=== PATIENT | female | born 1935 | race Caucasian/White ===

== ENCOUNTER 2018-04-21 10:44 | Emergency (ER) | payer OTHER, BC ==
[2018-04-21 11:09] VITALS: BP 138/70; PULSE 78; TEMP 98.3; BMI 21.7
--- NOTE | 2018-04-21 11:15 | PDOC ---
Attending Attestation - Resident Resident Name: Gilda Smith - ED Attending Attestation I have performed the following: I have examined & evaluated the patient, The case was reviewed & discussed with the resident, I agree w/resident's findings & plan, Exceptions are as noted - HPI HPI: 04/21/18 12:03 82 yo F who presents to the ER via EMS s/p mechanical fall Pt was trying to cross the street, her foot got caught in the [place] sign She fell forward and struck her head and face No LOC No amnesia Pt assisted to standing by a passerbyer No preceding chest pain, shortness of breath, palpitations No focal weakness or numbness - Physicial Exam PE: 04/21/18 12:23 GENERAL: The patient is in no acute distress. HEAD: (+) signs of trauma. EYES: PERRLA, EOMI, sclera anicteric, conjunctiva clear. ENT: Ears normal, nares patent, oropharynx clear without exudates. Moist mucous membranes. Nasal bridge deformed and bruised NECK: Normal range of motion, supple without midline tenderness LUNGS: Breath sounds equal, clear to auscultation bilaterally. No wheezes, and no crackles. HEART:Regular rate and rhythm, normal S1 and S2 without murmur, rub or gallop. ABDOMEN: Soft, nontender, normoactive bowel sounds. No guarding, no rebound. . EXTREMITIES: Normal range of motion, no edema. NEUROLOGICAL: Cranial nerves II through XII grossly intact. Normal speech. No focal neurological deficits. MUSCULOSKELETAL: Back non-tender to palpation, pelvis stable SKIN: 3cm laceration over the right eyebrow - Medical Decision Making 04/22/18 18:12 CT head - no ICH CT facial bones - nasal bone fractures CT cervical spine - no fracture or dislocation 04/22/18 18:14 Laboratory Tests 04/21/18 04/21/18 12:05 12:05 WBC 8.0 Hgb 14.1 Hct 39.7 Plt Count 322 BUN 27 H Creatinine 0.9 Creatine Kinase 68 Troponin I 0.45 H I did not see this troponin real time This patient will be contacted to return to the ER could not reach this patient EMS assistance requested to reach this patient she was reached Pt was resting in bed No complaints of chest pain Pt asked to return to the ER for repeat labs
--- NOTE | 2018-04-21 11:36 | PDOC ---
History of Present Illness - General Chief Complaint: Injury Stated Complaint: FALL Time Seen by Provider: 04/21/18 11:13 History Source: Patient - History of Present Illness Initial Comments: 04/21/18 12:09 The patient is an 82 year old female with a PMH of HTN who was BIBEMS following a fall. Patient states she was walking on the sidewalk and when she tripped over a portion of a street sign post that was sticking out of the sidewalk and fell forward striking her head on the sidewalk. Denies LOC, states she was helped to a sitting position by some passerby who called 911. Denies any pre fall chest pain, shortness of breath, lightheadedness, palpitations. No h/o recent falls. State last fall was on the ice approximately five years previous. The patient denies abdominal pain, nausea/vomiting, diarrhea/constipation, dysuria/hematuria, cough, sore throat. NKDA Surgical: none reported Social: denies toxic habits PMD: As per EMR, patient has never been evaluated in our ED on prior occasion. Past History - Past Medical History Allergies/Adverse Reactions: Allergies Allergy/AdvReac Type Severity Reaction Status Date / Time No Known Allergies Allergy Verified 04/22/18 22:09 Home Medications: Ambulatory Orders Aspirin [ASA -] 81 mg PO DAILY 04/21/18 COPD: No HTN: Yes - Suicide/Smoking/Psychosocial Hx Smoking History: Never smoked Have you smoked in the past 12 months: No Information on smoking cessation initiated: No Hx Alcohol Use: No Drug/Substance Use Hx: No Review of Systems - Review of Systems Constitutional: No: Chills, Fever HEENTM: No: Eye Pain, Recent change in vision Respiratory: No: Cough, Shortness of Breath Cardiac (ROS): No: Chest Pain, Lightheadedness, Palpitations, Syncope ABD/GI: No: Constipated, Diarrhea, Nausea, Vomiting : No: Burning, Dysuria Neurological: No: Headache, Numbness, Pre-Existing Deficit, Tingling, Unsteady Gait, Ataxia, Dizziness *Physical Exam - Vital Signs Last Vital Signs Temp Pulse Resp BP Pulse Ox 98.3 F 78 18 138/70 100 04/21/18 11:08 04/21/18 11:08 04/21/18 11:08 04/21/18 11:08 04/21/18 11:08 - Physical Exam General Appearance: Yes: Nourished, Thin HEENT: positive: Normal Voice, Hearing Grossly Normal, Other (No periorbital ecchymosis, no mastoid ecchymosis) Neck: positive: Trachea midline, Supple Respiratory/Chest: positive: Lungs Clear, Normal Breath Sounds Cardiovascular: positive: S1, S2. negative: Edema, JVD Vascular Pulses: Dorsalis-Pedis (R): 2+, Doralis-Pedis (L): 2+ Gastrointestinal/Abdominal: positive: Normal Bowel Sounds, Soft Extremity: positive: Normal Capillary Refill, Normal Inspection, Normal Range of Motion. negative: Coldness, Cyanosis, Calf Tenderness Integumentary: positive: Normal Color, Warm Neurologic: positive: Fully Oriented, Alert Moderate Sedation - Procedure Monitoring Vital Signs: Procedure Monitoring Vital Signs Temperature 98.3 F 04/21/18 11:08 Pulse Rate 78 04/21/18 11:08 Respiratory Rate 18 04/21/18 11:08 Blood Pressure 138/70 04/21/18 11:08 O2 Sat by Pulse Oximetry (%) 100 04/21/18 11:08 ED Treatment Course - LABORATORY CBC & Chemistry Diagram: 04/21/18 12:05 04/21/18 12:05 - RADIOLOGY Radiology Studies Ordered: Category Date Time Status CERVICAL SPINE CT W/O CONTR [CT] Stat CT Scan 04/21/18 11:[address] WITHOUT CONTRAST [CT] Stat CT Scan 04/21/18 11:33 Ordered CXRPORT [CHEST X-RAY PORTABLE*] [RAD] Stat Radiology 04/21/18 11:34 Ordered Medical Decision Making - Medical Decision Making 04/21/18 12:17 82 year old female s/p mechanical fall. VS unremarkable, moving all 4 extremities, no neurologic deficit noted on PE. 4 cm laceration on R occiput. Will CT head/C-spine, facial bones, basic labs. Patient declining pain medication. Reassess. 04/21/18 17:[address] negative for acute bleed/ischemia. Facial CT bone showed Laceration closed using simple interrupted sutures by Dr. Nayely AGUILA and discharge home. Review of patient's chart showed Elevated Troponin (0.40) Patient called to return to ED for cardiac evaluation. *DC/Admit/Observation/Transfer Diagnosis at time of Disposition: Fall - Discharge Dispostion Disposition: HOME Condition at time of disposition: Good Decision to Admit order: No - Referrals Referrals: Madeleine Eugene MD [Primary Care Provider] - - Patient Instructions Printed Discharge Instructions: DI for Laceration Repair, How to Prevent Falls Additional Instructions: You were evaluated today for a fall. A cat scan of your head showed no concerning findings. At this time you are safe for discharge home. Please follow-up with your primary care provided in the next 1 week. Your care is not complete until you follow up with your primary care provider. Return to the Emergency Department in 3-5 days for wound evaluation and suture removal. Return to the Emergency Department before that time for any loose sutures, severe pain, redness or new/worsening/concerning symptoms. - Post Discharge Activity
[2018-04-21 12:33] LABS: BASO % 1.3 % (0-2.0); EOS % 2.2 % (0-4.5); HEMATOCRIT 39.7 % (32.4-45.2); HEMOGLOBIN 14.1 GM/dL (10.7-15.3); LYMPH % 11.2 % (8-40); MCH 34.9 pg (25.7-33.7); MCHC 35.6 g/dl (32.0-36.0); MEAN CELL VOLUME 97.9 fl (80-96); MEAN PLT VOLUME 8.8 fl (7.5-11.1); MONO % 13.4 % (3.8-10.2); NEUT % 71.9 % (42.8-82.8); PLATELET COUNT 322 K/MM3 (134-434); RBC 4.05 M/mm3 (3.60-5.2); RDW 12.5 % (11.6-15.6)
[2018-04-21 13:09] LABS: ALBUMIN 3.8 g/dl (3.4-5.0); ALK PHOS 66 U/L (45-117); ANION GAP 8 MMOL/L (8-16); BILIRUBIN,TOTAL 0.6 mg/dL (0.2-1); BLOOD UREA NITROGEN 27 mg/dL (7-18); CALCIUM 10.2 mg/dL (8.5-10.1); CHLORIDE 101 mmol/L (98-107); CO2 25 mmol/L (21-32); CREATININE 0.9 mg/dL (0.55-1.3); GLUCOSE,RANDOM 118 mg/dL (74-106); MAGNESIUM 1.8 mg/dL (1.8-2.4); SGOT/AST 20 U/L (15-37); SGPT/ALT 18 U/L (13-61); SODIUM 134 mmol/L (136-145); TOT PROT 7.5 g/dl (6.4-8.2)
--- NOTE | 2018-04-21 15:53 | EKG ---
Test Reason : Blood Pressure : / mmHG Vent. Rate : 076 BPM Atrial Rate : 076 BPM P-R Int : 166 ms QRS Dur : 088 ms QT Int : 384 ms P-R-T Axes : 047 -05 052 degrees QTc Int : 432 ms NORMAL SINUS RHYTHM NORMAL ECG NO PREVIOUS ECGS AVAILABLE Confirmed by ANA NICOLAS, RAYMON ([id number]) on 04/21/2018 3:53:06 PM Referred By: Confirmed By:RAYMON PEREZ MD
[2018-04-21] MEDS ORDERED: DIPHTH,PERTUSS(ACELL),TET 0.5 ML DISP.SYRIN IM ONE ×2 (19:08→19:22)
== END 2018-04-21 20:16 | disposition home or self-care (01) ==
LOC: JER 10:44
PROC: 0HQ0XZZ Repair Scalp Skin, External Approach (ICD-10-PCS; principal; 2018-04-21)
PROC: 3E0234Z Introduction of Serum, Toxoid and Vaccine into Muscle, Percutaneous Approach (ICD-10-PCS; 2018-04-21)
DX: S01.01XA Laceration without foreign body of scalp, initial encounter (principal); W01.198A Fall on same level from slipping, tripping and stumbling with subsequent striking against other object, initial encounter; Y93.89 Activity, other specified; Y92.480 Sidewalk as the place of occurrence of the external cause; Y99.8 Other external cause status
CPT/HCPCS: 12002; 36415; 70450-TC; 70486-TC; 71045-TC-FY; 72125-TC; 80053; 82550; 83735; 84484; 85025; 86317; 90471; 90715; 93005; 93010; 99283-25

== ENCOUNTER 2018-04-22 21:46 | Emergency (ER) | payer OTHER, BC ==
--- NOTE | 2018-04-22 21:51 | PDOC ---
History of Present Illness - General Stated Complaint: LAB WORK Time Seen by Provider: 04/22/18 21:50 Past History - Past Medical History Allergies/Adverse Reactions: Allergies Allergy/AdvReac Type Severity Reaction Status Date / Time No Known Allergies Allergy Verified 04/21/18 11:09 Home Medications: Ambulatory Orders Aspirin [ASA -] 81 mg PO DAILY 04/21/18 COPD: No HTN: Yes - Suicide/Smoking/Psychosocial Hx Smoking History: Never smoked Have you smoked in the past 12 months: No Hx Alcohol Use: No Drug/Substance Use Hx: No
[2018-04-22 22:12] VITALS: BP 127/62; PULSE 78; TEMP 97.4; BMI 20.9
--- NOTE | 2018-04-22 22:17 | PDOC ---
History of Present Illness - General Stated Complaint: LAB WORK Time Seen by Provider: 04/22/18 21:50 History Source: Patient - History of Present Illness Initial Comments: 04/22/18 22:18 The patient is a 82 year old female with a PMH of HTN who was BIBEMS after lab results taken yesterday showed an elevated Troponin. Patient denies any chest pain, shortness of breath, lightheadness, palpitations. Has never been evaluated by a [facility] gr[facility] Past History - Past Medical History Allergies/Adverse Reactions: Allergies Allergy/AdvReac Type Severity Reaction Status Date / Time No Known Allergies Allergy Verified 04/22/18 22:09 Home Medications: Ambulatory Orders Aspirin [ASA -] 81 mg PO DAILY 04/21/18 COPD: No HTN: Yes - Suicide/Smoking/Psychosocial Hx Smoking History: Never smoked Have you smoked in the past 12 months: No Information on smoking cessation initiated: No Hx Alcohol Use: No Drug/Substance Use Hx: No Review of Systems - Review of Systems Constitutional: No: Chills, Fever HEENTM: No: Recent change in vision Respiratory: No: Cough, Shortness of Breath, Stridor, Wheezing Cardiac (ROS): No: Chest Pain, Lightheadedness, Palpitations, Syncope ABD/GI: No: Constipated, Diarrhea, Nausea, Vomiting : No: Burning, Dysuria *Physical Exam - Vital Signs Last Vital Signs Temp Pulse Resp BP Pulse Ox 97.4 F L 78 18 127/62 97 04/22/18 21:55 04/22/18 21:55 04/22/18 21:55 04/22/18 21:55 04/22/18 21:55 - Physical Exam General Appearance: Yes: Nourished, Appropriately Dressed HEENT: positive: Normal Voice, Hearing Grossly Normal, Other (R facial laceration with C/D/I sutures; R periorbital ecchymosis) Neck: positive: Trachea midline, Supple Respiratory/Chest: positive: Lungs Clear, Normal Breath Sounds. negative: Accessory Muscle Use, Labored Respiration, Crackles, Wheezing Cardiovascular: positive: S1, S2 Vascular Pulses: Dorsalis-Pedis (R): 2+, Doralis-Pedis (L): 2+ Moderate Sedation - Procedure Monitoring Vital Signs: Procedure Monitoring Vital Signs Temperature 97.4 F L 04/22/18 21:55 Pulse Rate 78 04/22/18 21:55 Respiratory Rate 18 04/22/18 21:55 Blood Pressure 127/62 04/22/18 21:55 O2 Sat by Pulse Oximetry (%) 97 04/22/18 21:55 Heart Score/ECG Review - ECG Impressions Comment:: 04/22/18 23:18 EKG shows NSR HR 76, normal intervals, no deviations, no PRESLEY/STD/TWI; poor R wave progession V1-V6 ED Treatment Course - LABORATORY CBC & Chemistry Diagram: 04/22/18 22:02 04/23/18 00:21 Medical Decision Making - Medical Decision Making 04/22/18 22:30 82 year old female with elevated Troponin (0.40) yesterday after fall. No c/o chest pain. VS unremarkable. Will work up for r/o ACS vs transient ischemic demand 2/2 to fall with repeat Troponin. EKG non-ischemic as documented in EKG section of EMR 04/22/18 23:19 My read of CXR shows no infiltrate/consolidation/cardiomegaly; mild pulmonary vascular congestion 04/23/18 01:00 Repeat Troponin 0.20, BNP 1337, however no signs of fluid overload on PE, no S3 , no cardiomegaly on CXR. Will confirm with cardiology that patient can be discharged with close PMD follow-up. Call placed to [facility] 04/23/18 01:24 Case d/w Dr. Rehman - patient may have chronic hypertensive heart disease with elevated BNP. Safe for discharge for home. I discussed the physical exam findings, ancillary test results and final diagnoses with the patient. I answered all the patient's questions and the patient felt satisfied with the level of care received. The patient will follow up with her primary care doctor in 3 days and return to the Emergency Department for any new/worsening/concerning symptoms. *DC/Admit/Observation/Transfer Diagnosis at time of Disposition: Elevated brain natriuretic peptide (BNP) level - Discharge Dispostion Disposition: HOME Condition at time of disposition: Good Decision to Admit order: No - Referrals Referrals: Madeleine Eugene MD [Primary Care Provider] - - Patient Instructions Printed Discharge Instructions: Never Enough: [facility] Additional Instructions: Please follow up with Dr. Eugene in the next 3 days. We are providing you with a copy of your labs. Take these labs with you when you are evaluated by Dr. Eugene. Return to the ED as previously scheduled for suture removal in 4 days. Return to the Emergency Department before that time for any new/worsening/ concerning symptoms. - Post Discharge Activity
[2018-04-22 22:36] LABS: BASO % 2.2 % (0-2.0); EOS % 10.6 % (0-4.5); HEMATOCRIT 36.2 % (32.4-45.2); HEMOGLOBIN 12.8 GM/dL (10.7-15.3); LYMPH % 45.6 % (8-40); MCH 34.7 pg (25.7-33.7); MCHC 35.5 g/dl (32.0-36.0); MEAN CELL VOLUME 97.7 fl (80-96); MEAN PLT VOLUME 8.9 fl (7.5-11.1); MONO % 29.6 % (3.8-10.2); PLATELET COUNT 290 K/MM3 (134-434); RDW 12.5 % (11.6-15.6); WHITE BLOOD COUNT 3.7 K/mm3 (4.0-10.0)
[2018-04-22 23:36] LABS: PLATELET ESTIMATE ADEQUATE
--- NOTE | 2018-04-22 23:47 | PDOC ---
Attending Attestation - Resident Resident Name: Gilda Smith - ED Attending Attestation I have performed the following: I have examined & evaluated the patient, The case was reviewed & discussed with the resident, I agree w/resident's findings & plan, Exceptions are as noted
[2018-04-23 00:57] LABS: ALBUMIN 3.3 g/dl (3.4-5.0); ALK PHOS 63 U/L (45-117); ANION GAP 8 MMOL/L (8-16); BILIRUBIN,TOTAL 0.5 mg/dL (0.2-1); BLOOD UREA NITROGEN 29 mg/dL (7-18); CALCIUM 8.9 mg/dL (8.5-10.1); CHLORIDE 104 mmol/L (98-107); CO2 22 mmol/L (21-32); GLUCOSE,RANDOM 99 mg/dL (74-106); N-TERMINAL BNP 1337.4 pg/ml (5-450); POTASSIUM 4.4 mmol/L (3.5-5.1); SGOT/AST 21 U/L (15-37); SGPT/ALT 16 U/L (13-61); SODIUM 134 mmol/L (136-145); TOT PROT 6.6 g/dl (6.4-8.2)
--- NOTE | 2018-04-23 08:40 | EKG ---
Test Reason : Blood Pressure : / mmHG Vent. Rate : 076 BPM Atrial Rate : 076 BPM P-R Int : 172 ms QRS Dur : 080 ms QT Int : 414 ms P-R-T Axes : 055 -01 056 degrees QTc Int : 465 ms NORMAL SINUS RHYTHM NORMAL ECG WHEN COMPARED WITH ECG OF 21-APR-2018 12:02, NO SIGNIFICANT CHANGE WAS FOUND Confirmed by RAYMON PEREZ MD ([id number]) on 04/23/2018 8:39:52 AM Referred By: Confirmed By:RAYMON PEREZ MD
== END 2018-04-23 01:47 | disposition home or self-care (01) ==
LOC: JER 21:46 → UNDOADMOB 23:11 → JERBED 23:11 → JER 04-23 01:47
DX: R79.89 Other specified abnormal findings of blood chemistry (principal); I10 Essential (primary) hypertension; Z79.82 Long term (current) use of aspirin
CPT/HCPCS: 36415; 71045-TC-FY; 80048; 80053; 82550; 83880; 84484; 85025; 93005; 93010; 99281-25